=== PATIENT | female | born 1965 | race American Indian/Alaskan Native ===

== ENCOUNTER 2016-06-19 12:08 | Emergency (ER) | payer OTHER ==
[2016-06-19 12:33] VITALS: BP 154/106
[2016-06-19] MEDS ORDERED: ZITHROMAX PO ONE (15:22)
[2016-06-19] MEDS ORDERED: MOTRIN PO ONE (15:22)
[2016-06-19] MEDS ORDERED: ROBITUSSIN DM PO ONE (15:22)
[2016-06-19] MEDS ORDERED: DUONEB 0.5 MG-3 MG/3 ML SOLN IH ONE ×2 (15:23→16:18)
[2016-06-19] MEDS ORDERED: DELTASONE PO ONE (15:23)
[2016-06-19] MEDS ORDERED: PROVENTIL IH ONE (15:38)
--- NOTE | 2016-06-19 15:39 | Emergency Department Report ---
- General Chief Complaint: Upper Respiratory Infection Stated Complaint: WHEEZING/COUGH/BODY ACHE/EAR CLOGGED Time Seen by Provider: 06/19/16 15:22 Source: patient Mode of arrival: Ambulatory Limitations: No Limitations - History of Present Illness Initial Comments: 51-year-old female smoker presents with 2 weeks of worsening cough now productive with fever and chills. Patient actively wheezing on exam, having coughing fits which leave her breathlessness. Denies any substernal chest pain no diaphoresis, subjective fever chills. Denies any nausea or vomiting no recent travel. Complaining of body aches. Onset/Timin -: week(s) Severity: moderate Severity scale (0 -10): 6 Consistency: constant Improves With: OTC cold medicine Worsens With: nothing Context: sick contacts Associated Symptoms: cough - Related Data Home Medications Medication Instructions Recorded Confirmed Last Taken metFORMIN [Glucophage] 500 mg PO BID 05/27/15 05/27/15 Unknown Previous Rx's Medication Instructions Recorded Last Taken Type Insulin NPH/Regular [NovoLIN 70/30] 15 unit SUB-Q BIDDIAB #30 units 05/29/15 Unknown Rx Insulin Regular, Human [HumuLIN R] 1,000 unit SQ AC PRN #30 ml 05/29/15 Unknown Rx Lancing Device/Lancets [Onetouch 1 each MC AC #30 each 05/29/15 Unknown Rx Suresoft Lancing Dev] ALBUTEROL Inhaler [Proair] 2 puff IH QID PRN #1 inhalation 06/19/16 Unknown Rx Azithromycin [Zithromax Z-KOURTNEY] 250 mg PO QDAY #4 tablet 06/19/16 Unknown Rx Naproxen [Naprosyn TAB] 500 mg PO BID PRN #20 tablet 06/19/16 Unknown Rx Phenylephrine/Dm/Acetaminop/GG 10 ml PO Q4H PRN #1 bottle 06/19/16 Unknown Rx [Mucinex Fast-Max Sev Cold Liq] predniSONE [Deltasone] 40 mg PO QDAY #10 tablet 06/19/16 Unknown Rx Allergies Allergy/AdvReac Type Severity Reaction Status Date / Time No Known Allergies Allergy Unverified 01/22/15 11:52 ED Review of Systems ROS: Stated complaint: WHEEZING/COUGH/BODY ACHE/EAR CLOGGED Other details as noted in HPI Constitutional: denies: chills, fever Eyes: denies: eye pain, eye discharge, vision change ENT: denies: ear pain, throat pain Respiratory: denies: cough, shortness of breath, wheezing Cardiovascular: denies: chest pain, palpitations Endocrine: no symptoms reported Gastrointestinal: denies: abdominal pain, nausea, diarrhea Genitourinary: denies: urgency, dysuria, discharge Musculoskeletal: denies: back pain, joint swelling, arthralgia Skin: denies: rash, lesions Neurological: denies: headache, weakness, paresthesias Psychiatric: denies: anxiety, depression Hematological/Lymphatic: denies: easy bleeding, easy bruising ED Past Medical Hx - Past Medical History Previous Medical History?: Yes Hx Congestive Heart Failure: No Hx Diabetes: Yes Hx Asthma: No Hx COPD: No Hx HIV: No - Surgical History Past Surgical History?: Yes Additional Surgical History: TUBAL LIGATION 1991. TONSILLECTOMY - Social History Smoking Status: Current Every Day Smoker Substance Use Type: Alcohol - Medications Home Medications: Home Medications Medication Instructions Recorded Confirmed Last Taken Type metFORMIN [Glucophage] 500 mg PO BID 05/27/15 05/27/15 Unknown History Insulin NPH/Regular [NovoLIN 70/30] 15 unit SUB-Q BIDDIAB #30 units 05/29/15 Unknown Rx Insulin Regular, Human [HumuLIN R] 1,000 unit SQ AC PRN #30 ml 05/29/15 Unknown Rx Lancing Device/Lancets [Onetouch 1 each MC AC #30 each 05/29/15 Unknown Rx Suresoft Lancing Dev] ALBUTEROL Inhaler [Proair] 2 puff IH QID PRN #1 inhalation 06/19/16 Unknown Rx Azithromycin [Zithromax Z-KOURTNEY] 250 mg PO QDAY #4 tablet 06/19/16 Unknown Rx Naproxen [Naprosyn TAB] 500 mg PO BID PRN #20 tablet 06/19/16 Unknown Rx Phenylephrine/Dm/Acetaminop/GG 10 ml PO Q4H PRN #1 bottle 06/19/16 Unknown Rx [Mucinex Fast-Max Sev Cold Liq] predniSONE [Deltasone] 40 mg PO QDAY #10 tablet 06/19/16 Unknown Rx ED Physical Exam - General Limitations: No Limitations General appearance: alert, in no apparent distress - Head Head exam: Present: atraumatic, normocephalic - Eye Eye exam: Present: normal appearance, PERRL, EOMI - ENT ENT exam: Present: mucous membranes moist - Neck Neck exam: Present: normal inspection - Respiratory Respiratory exam: Present: normal lung sounds bilaterally, rhonchi. Absent: respiratory distress - Cardiovascular Cardiovascular Exam: Present: regular rate, normal rhythm. Absent: systolic murmur, diastolic murmur, rubs, gallop - GI/Abdominal GI/Abdominal exam: Present: soft, normal bowel sounds - Extremities Exam Extremities exam: Present: normal inspection, full ROM, tenderness - Back Exam Back exam: Present: normal inspection - Neurological Exam Neurological exam: Present: alert, oriented X3, CN II-XII intact, normal gait - Psychiatric Psychiatric exam: Present: normal affect, normal mood - Skin Skin exam: Present: warm, dry, intact, normal color. Absent: rash ED Course Vital Signs 06/19/16 06/19/16 06/19/16 12:29 15:10 15:36 Temperature 98.4 F Pulse Rate 90 Pulse Rate [ 88 89 Posterior Bilateral Throughout] Respiratory 20 Rate Respiratory 22 26 H Rate [Posterior Bilateral Throughout] Blood Pressure 154/106 O2 Sat by Pulse 95 Oximetry 06/19/16 06/19/16 16:22 16:46 Temperature Pulse Rate Pulse Rate [ 88 87 Posterior Bilateral Throughout] Respiratory Rate Respiratory 22 20 Rate [Posterior Bilateral Throughout] Blood Pressure O2 Sat by Pulse Oximetry ED Medical Decision Making - Medical Decision Making A/P: Acute bronchitis 1-chest x-ray within normal limits 2-Mucinex, Z-Kourtney, Proventil inhaler, prednisone 40 mg 5 days 3-follow-up with primary care doctor Critical care attestation.: If time is entered above; I have spent that time in minutes in the direct care of this critically ill patient, excluding procedure time. ED Disposition Clinical Impression: Acute bronchitis Qualifiers: Bronchitis organism: unspecified organism Qualified Code(s): J20.9 - Acute bronchitis, unspecified Disposition: DISCHARGED TO HOME OR SELFCARE Is pt being admited?: No Does the pt Need Aspirin: No Condition: Stable Instructions: Acute Bronchitis (ED) Prescriptions: predniSONE [Deltasone] 40 mg PO QDAY #10 tablet Phenylephrine/Dm/Acetaminop/GG [Mucinex Fast-Max Sev Cold Liq] 10 ml PO Q4H PRN #1 bottle PRN Reason: Cough Naproxen [Naprosyn TAB] 500 mg PO BID PRN #20 tablet PRN Reason: Fever ALBUTEROL Inhaler [Proair] 2 puff IH QID PRN #1 inhalation PRN Reason: Shortness Of Breath Azithromycin [Zithromax Z-KOURTNEY] 250 mg PO QDAY #4 tablet Referrals: PRIMARY CARE, [Primary Care Provider] - 3-5 Days Forms: Work/School Release Form(ED)
--- NOTE | 2016-06-19 17:27 | XRay Report ---
FINAL REPORT PROCEDURE: XR CHEST ROUTINE 2V TECHNIQUE: Two views of the chest are obtained HISTORY: ? PNA rhonchi and wheezign loudly COMPARISON: No prior studies are available for comparison. FINDINGS: The heart is normal in size. There is no focal infiltrate, pneumothorax or pleural effusion. No hyperinflation is seen. IMPRESSION: No abnormalities are seen.
== END 2016-06-19 18:30 | disposition home or self-care (01) ==
LOC: ED 12:08
DX: J20.9 Acute bronchitis, unspecified (principal); E11.9 Type 2 diabetes mellitus without complications; Z79.4 Long term (current) use of insulin; F17.200 Nicotine dependence, unspecified, uncomplicated
CPT/HCPCS: 71020; 94640; 99283; J7512

== ENCOUNTER 2016-08-07 11:05 | Emergency (ER) | payer SELFPAY ==
[2016-08-07 12:36] LABS: Basophils % (Auto) 0.5 % (0.0-1.8); Eosinophils % (Auto) 0.2 % (0.0-4.3); Hemoglobin 13.5 gm/dl (10.1-14.3); Mean Corpuscular HGB Conc 33 % (30-34); Mean Corpuscular Hemoglobin 28 pg (28-32); Mean Corpuscular Volume 86 fl (79-97); Platelet Count 298 K/mm3 (140-440); Red Blood Count 4.76 M/mm3 (3.65-5.03); Red Cell Distribution Width 13.8 % (13.2-15.2); White Blood Count 15.4 K/mm3 (4.5-11.0)
[2016-08-07 12:51] LABS: Alanine Aminotransferase 26 units/L (7-56); Albumin/Globulin Ratio 1.4 %; Alkaline Phosphatase 75 units/L (35-129); Anion Gap 17 mmol/L; Bilirubin,Total 0.2 mg/dL (0.1-1.2); Blood Urea Nitrogen 9 mg/dL (7-17); Calcium 9.3 mg/dL (8.4-10.2); Carbon Dioxide 26 mmol/L (22-30); Glucose 192 mg/dL (65-100); Lipase 21 units/L (13-60); Potassium 4.6 mmol/L (3.6-5.0); Sodium 139 mmol/L (137-145); Total Protein 6.9 g/dL (6.3-8.2)
[2016-08-07 14:54] LABS: Bacteria,Urine 1+ /HPF (Negative); Bilirubin,Urine NEG (Negative); Blood,Urine NEG (Negative); Ketones,Urine NEG (Negative); Leukocyte Esterase,Urine MOD (Negative); Mucus,Urine 1+ /HPF; Nitrite,Urine NEG (Negative); Protein,Urine <15 mg/dL mg/dL (Negative); Urobilinogen,Urine < 2.0 mg/dL (<2.0)
[2016-08-07] MEDS ORDERED: TYLENOL ONE (15:32)
[2016-08-07 15:37] VITALS: BP 145/89
[2016-08-07] MEDS ORDERED: TYLENOL PO ONE (15:37)
--- NOTE | 2016-08-08 07:11 | ED Elopement Review ---
ED Pt Elopement review - Results review Lab results: Laboratory Tests 08/07/16 08/07/16 08/07/16 12:25 12:25 13:36 WBC 15.4 H RBC 4.76 Hgb 13.5 Hct 41.0 MCV 86 MCH 28 MCHC 33 RDW 13.8 Plt Count 298 Lymph % (Auto) 13.4 [place] % (Auto) 3.9 Eos % (Auto) 0.2 Baso % (Auto) 0.5 Lymph # 2.1 [place] # 0.6 Eos # 0.0 Baso # 0.1 Seg Neutrophils % 82.0 H Seg Neutrophils # 12.6 H Sodium 139 Potassium 4.6 Chloride 101.0 Carbon Dioxide 26 Anion Gap 17 BUN 9 Creatinine 0.6 L Estimated GFR > 60 BUN/Creatinine Ratio 15.00 Glucose 192 H Calcium 9.3 Total Bilirubin 0.2 AST 19 ALT 26 Alkaline Phosphatase 75 Total Protein 6.9 Albumin 4.0 Albumin/Globulin Ratio 1.4 Lipase 21 Urine Color Yellow Urine Turbidity Cloudy Urine pH 6.0 Ur Specific [place] 1.016 Urine Protein <15 mg/dl Urine Glucose (UA) 50 Urine Ketones Neg Urine Blood Neg Urine Nitrite Neg Urine Bilirubin Neg Urine Urobilinogen < 2.0 Ur Leukocyte Esterase Mod Urine WBC (Auto) 6.0 Urine RBC (Auto) 3.0 U Epithel Cells (Auto) 15.0 H Urine Bacteria (Auto) 1+ Urine Mucus 1+ - Call Back decision Pt Call Back Decision: No action required
== END 2016-08-07 15:43 | disposition left against medical advice (07) ==
LOC: ED 11:05
DX: R10.30 Lower abdominal pain, unspecified (principal); R11.0 Nausea; E11.9 Type 2 diabetes mellitus without complications; F17.200 Nicotine dependence, unspecified, uncomplicated; Z53.21 Procedure and treatment not carried out due to patient leaving prior to being seen by health care provider
CPT/HCPCS: 36415; 80053; 81001; 83690; 85025

== ENCOUNTER 2017-03-03 22:59 | Inpatient (IN) | payer OTHER ==
[2017-03-03] MEDS ORDERED: FIORICET ONE (23:32)
[2017-03-03] MEDS ORDERED: FIORICET PO ONE (23:32)
[2017-03-04] MEDS ORDERED: BENADRYL ONE (05:29)
[2017-03-04] MEDS ORDERED: REGLAN ONE (05:29)
[2017-03-04] MEDS ORDERED: REGLAN IV ONE (05:35)
[2017-03-04] MEDS ORDERED: BENADRYL IV ONE (05:35)
--- NOTE | 2017-03-04 06:27 | Cat Scan Report ---
FINAL REPORT PROCEDURE: CT HEAD/BRAIN WO CON TECHNIQUE: Computerized tomography of the head was performed without contrast material. HISTORY: BROOKS, FACIAL SWELLING AND NUMBING COMPARISON: No prior studies are available for comparison. FINDINGS: Skull and scalp: Normal. Paranasal sinuses: Normal. Ventricles and subarachnoid spaces: Normal. Cerebrum: No evidence of hemorrhage, acute infarction or mass . Cerebellum and brainstem: No evidence of hemorrhage, acute infarction or mass. Vasculature: Normal. Comments: None. IMPRESSION: Normal Examination
[2017-03-04] MEDS ORDERED: CATAPRES PO ONE (06:50)
[2017-03-04] MEDS ORDERED: SUBLIMAZE IV ONE ×2 (06:51→10:09)
[2017-03-04] MEDS ORDERED: ZOFRAN IV ONE (06:51)
--- NOTE | 2017-03-04 06:56 | Emergency Department Report ---
HPI - General Chief Complaint: Neck Pain/Injury Time Seen by Provider: 03/04/17 06:37 - HPI HPI: Room 7 The patient is a 52-year-old female presented with the chief complaint of headache. The patient states 1 week ago she developed pain in the right posterior aspect of her neck. The patient states this pain then spread to the right side of her face and then diffuse head. [id number] medications did not help. Patient denies any preceding trauma or history of fever. Patient denies any preceding URI symptoms. Yesterday the patient states she developed intermittent bilateral hand numbness the right greater than left. The patient states she also developed intermittent right lower extremity numbness. Patient denies weakness, dysarthria or dysphagia Location: [see above] Duration: One week Quality: Pain Severity: Moderate Modifying factors: [see above] Context: [see above] Mode of transportation: unknown ED Past Medical Hx - Past Medical History Hx CVA: Yes (TIA) Hx Diabetes: Yes - Surgical History Additional Surgical History: TUBAL LIGATION 1991. TONSILLECTOMY - Family History Family history: no significant - Social History Smoking Status: Current Every Day Smoker Substance Use Type: None (denies illicit drug use), Alcohol (occasional) - Medications Home Medications: Home Medications Medication Instructions Recorded Confirmed Last Taken Type Insulin NPH/Regular [NovoLIN 70/30] 15 - 40 unit SUB-Q QDAY 03/04/17 03/04/17 Unknown History Insulin Regular, Human [HumuLIN R] 20 unit SQ AC PRN 03/04/17 03/04/17 Unknown History ED Review of Systems ROS: Stated complaint: POSSIBLE STROKE Other details as noted in HPI Comment: All other systems reviewed and negative Constitutional: denies: chills, fever Eyes: denies: eye pain, eye discharge, vision change ENT: denies: ear pain, throat pain Respiratory: denies: cough, shortness of breath, wheezing Cardiovascular: denies: chest pain, palpitations Endocrine: no symptoms reported Gastrointestinal: denies: abdominal pain, nausea, diarrhea Genitourinary: denies: urgency, dysuria, discharge Musculoskeletal: myalgia Skin: denies: rash, lesions Neurological: headache, paresthesias Psychiatric: denies: anxiety, depression Hematological/Lymphatic: denies: easy bleeding, easy bruising Physical Exam - Physical Exam Vital Signs: Vital Signs 09/03/03/17 03/04/17 23:09 23:33 03:56 Temperature 98.9 F 97.7 F Pulse Rate 128 H 98 H Respiratory 18 18 20 Rate Blood Pressure 175/111 168/107 Blood Pressure [Right] O2 Sat by Pulse 99 100 Oximetry 03/04/17 03/04/17 05:02 05:50 Temperature 98.7 F Pulse Rate 82 84 Respiratory 18 20 Rate Blood Pressure Blood Pressure 176/106 183/109 [Right] O2 Sat by Pulse 99 100 Oximetry Physical Exam: GENERAL: The patient is well-developed well-nourished female lying on stretcher appearing to be in moderate discomfort. [] HEENT: Normocephalic. Atraumatic. Extraocular motions are intact. Patient has moist mucous membranes. NECK: Supple. Trachea midline CHEST/LUNGS: Clear to auscultation. There is no respiratory distress noted. HEART/CARDIOVASCULAR: Regular. There is no tachycardia. There is no gallop rub or murmur. ABDOMEN: Abdomen is soft, nontender. Patient has normal bowel sounds. There is no abdominal distention. SKIN: There is no rash. There is no edema. There is no diaphoresis. NEURO: The patient is awake, alert, and oriented. The patient is cooperative. The patient has no focal neurologic deficits. The patient has normal speech. Cranial nerves II through XII grossly intact, no drift MUSCULOSKELETAL: There is no evidence of acute injury. ED Course Vital Signs 03/03/17 03/03/17 03/04/17 23:09 23:33 03:56 Temperature 98.9 F 97.7 F Pulse Rate 128 H 98 H Respiratory 18 18 20 Rate Blood Pressure 175/111 168/107 Blood Pressure [Right] O2 Sat by Pulse 99 100 Oximetry 03/04/17 03/04/17 05:02 05:50 Temperature 98.7 F Pulse Rate 82 84 Respiratory 18 20 Rate Blood Pressure Blood Pressure 176/106 183/109 [Right] O2 Sat by Pulse 99 100 Oximetry ED Medical Decision Making - Lab Data Result diagrams: 03/04/17 06:59 03/04/17 06:59 Laboratory Tests 03/03/17 03/04/17 03/04/17 23:16 03:57 06:59 WBC 13.1 H RBC 5.07 H Hgb 14.3 Hct 43.4 H MCV 85 MCH 28 MCHC 33 RDW 14.4 Plt Count 263 Lymph % (Auto) 28.2 [place] % (Auto) 6.0 Eos % (Auto) 2.2 Baso % (Auto) 0.7 Lymph # 3.7 [place] # 0.8 Eos # 0.3 Baso # 0.1 Seg Neutrophils % 62.9 Seg Neutrophils # 8.3 H PT INR APTT Sodium Potassium Chloride Carbon Dioxide Anion Gap BUN Creatinine Estimated GFR BUN/Creatinine Ratio Glucose POC Glucose 164 H 168 H Calcium 03/04/17 03/04/17 03/04/17 06:59 06:59 09:33 WBC RBC Hgb Hct MCV MCH MCHC RDW Plt Count Lymph % (Auto) [place] % (Auto) Eos % (Auto) Baso % (Auto) Lymph # [place] # Eos # Baso # Seg Neutrophils % Seg Neutrophils # PT 14.1 INR 1.10 APTT 36.2 Sodium 140 Potassium 3.9 Chloride 100.3 Carbon Dioxide 27 Anion Gap 17 BUN 13 Creatinine 0.6 L Estimated GFR > 60 BUN/Creatinine Ratio 21.66 Glucose 179 H POC Glucose 189 H Calcium 9.3 - EKG Data -: EKG Interpreted by Ne EKG shows normal: sinus rhythm Rate: normal - EKG Data When compared to previous EKG there are: previous EKG unavailable Interpretation: other (no ischemic changes seen) - Radiology Data Radiology results: report reviewed (CT head, CT angiogram brain, CT angiogram neck), image reviewed (CT head, CT angiogram brain, CT angiogram neck) CT head (read by radiologist)-normal examination CT angiogram neck/CT angiogram head (read by radiologist)-normal CTA head and neck with few incidental findings. - Differential Diagnosis TIA, CVA, ICH, intracranial mass, cerebral aneurysm Critical care attestation.: If time is entered above; I have spent that time in minutes in the direct care of this critically ill patient, excluding procedure time. ED Disposition Clinical Impression: TIA (transient ischemic attack), Headache, Right leg numbness, Hypertension Disposition: - OP ADMIT IP TO THIS HOSP Is pt being admited?: Yes Does the pt Need Aspirin: Yes Condition: Fair Instructions: Hypertension (ED) Referrals: PRIMARY CARE, [Primary Care Provider] - 3-5 Days Time of Disposition: 09:56 (hospitalist paged)
[2017-03-04 07:27] LABS: Basophils % (Auto) 0.7 % (0.0-1.8); Eosinophils % (Auto) 2.2 % (0.0-4.3); Hematocrit 43.4 % (30.3-42.9); Hemoglobin 14.3 gm/dl (10.1-14.3); Mean Corpuscular HGB Conc 33 % (30-34); Mean Corpuscular Hemoglobin 28 pg (28-32); Mean Corpuscular Volume 85 fl (79-97); Platelet Count 263 K/mm3 (140-440); Red Blood Count 5.07 M/mm3 (3.65-5.03); Red Cell Distribution Width 14.4 % (13.2-15.2); White Blood Count 13.1 K/mm3 (4.5-11.0)
[2017-03-04] MEDS ORDERED: NACL ONE (07:28)
[2017-03-04 07:34] LABS: Anion Gap 17 mmol/L; BUN/Creatinine Ratio 21.66; Blood Urea Nitrogen 13 mg/dL (7-17); Calcium 9.3 mg/dL (8.4-10.2); Carbon Dioxide 27 mmol/L (22-30); Chloride 100.3 mmol/L (98-107); Glucose 179 mg/dL (65-100); Potassium 3.9 mmol/L (3.6-5.0); Sodium 140 mmol/L (137-145)
[2017-03-04 07:39] LABS: INR 1.1 (0.87-1.13)
[2017-03-04 07:40] LABS: Partial Thromboplastin Time 36.2 Sec. (24.2-36.6)
--- NOTE | 2017-03-04 09:49 | Cat Scan Report ---
CTA HEAD CTA NECK INDICATION: Headache, right-sided numbness. COMPARISON: None similar. FINDINGS: CTA head and neck performed utilizing IV contrast. Axial, sagittal, coronal and MIP reconstructions obtained. CTA HEAD: Patent [place] without evidence of occlusion, significant stenosis or vascular malformation. Patent vertebrobasilar system as well. CTA NECK: Patent aortic arch and major arising branch vessels, including bilateral carotids and codominant vertebral arteries. Mild vertebral artery tortuosity noted. Medial deviation of the left mid ICA also noted in the pharynx, axial image 124, series 2. Mild atherosclerotic calcifications as at the aortic arch and along right proximal ICA. Some iatrogenic venous air. Unremarkable thyroid. Minimal biapical scarring or atelectasis posteriorly and minimal emphysematous bullae. Patent airway. Few radiopaque dental fillings. CONCLUSION: Normal CTA head and neck with few incidental findings, as described. Please correlate. Thank you for the opportunity to participate in this patient's care.
--- NOTE | 2017-03-04 09:49 | Cat Scan Report ---
CTA HEAD CTA NECK INDICATION: Headache, right-sided numbness. COMPARISON: None similar. FINDINGS: CTA head and neck performed utilizing IV contrast. Axial, sagittal, coronal and MIP reconstructions obtained. CTA HEAD: Patent [place] without evidence of occlusion, significant stenosis or vascular malformation. Patent vertebrobasilar system as well. CTA NECK: Patent aortic arch and major arising branch vessels, including bilateral carotids and codominant vertebral arteries. Mild vertebral artery tortuosity noted. Medial deviation of the left mid ICA also noted in the pharynx, axial image 124, series 2. Mild atherosclerotic calcifications as at the aortic arch and along right proximal ICA. Some iatrogenic venous air. Unremarkable thyroid. Minimal biapical scarring or atelectasis posteriorly and minimal emphysematous bullae. Patent airway. Few radiopaque dental fillings. CONCLUSION: Normal CTA head and neck with few incidental findings, as described. Please correlate. Thank you for the opportunity to participate in this patient's care.
[2017-03-04] MEDS ORDERED: ASPIRIN PO ONE (09:56)
--- NOTE | 2017-03-04 11:23 | History and Physical Report ---
History of Present Illness Date of examination: 03/04/17 Date of admission: 03/04/17 10:17 Chief complaint: Neck pain and headache History of present illness: The patient is a 52-year-old female presented with the chief complaint of headache. The patient states 1 week ago she developed pain in the right posterior aspect of her neck. The patient states this pain then spread to the right side of her face and then diffuse head. [id number] medications did not help. Patient denies any preceding trauma or history of fever. Patient denies any preceding URI symptoms. Yesterday the patient states she developed intermittent bilateral hand numbness the right greater than left. The patient states she also developed intermittent right lower extremity numbness. Patient denies weakness, dysarthria or dysphagia Past History Past Medical History: diabetes Past Surgical History: Other (tubal ligation) Social history: smoking (a quarter of a pack a day), alcohol abuse ([place] or alcohol use), full code Family history: hypertension Review of System: Constitutional: no fever, no chills, no weight loss Ears, eyes, nose, mouth and throat: no nasal congestion, no nasal discharge, no sinus pressure, no vision change, no red eye. Neck: + neck pain and restricted movement. Cardiovascular: No chest pain, no orthopnea, no palpitations, no leg swelling Respiratory: No shortness of breath, no cough, no congestion, no wheezing Gastrointestinal: no abdominal pain, no nausea, no vomiting Genitourinary : no dysuria, no hematuria Musculoskeletal: no joint swelling or muscle ache Integumentary: no rash, no pruritis Neurological: no parathesias, + RUE numbness, no tingling, + headache Endocrine: no cold or heat intolerance, no polyuria or polydipsia Hematologic/Lymphatic: no easy bruising, no easy bleeding, no gland swelling Allergic/Immunologic: no urticaria, no angioedema. Medications and Allergies Allergies Allergy/AdvReac Type Severity Reaction Status Date / Time No Known Allergies Allergy Unverified 01/22/15 11:52 Home Medications Medication Instructions Recorded Confirmed Last Taken Type Insulin NPH/Regular [NovoLIN 70/30] 15 - 40 unit SUB-Q QDAY 03/04/17 03/04/17 Unknown History Insulin Regular, Human [HumuLIN R] 20 unit SQ AC PRN 03/04/17 03/04/17 Unknown History Active Meds: Active Medications Insulin Human Regular (Novolin R) 0 units SUB-Q ACHS CHRIS PRN Reason: Protocol Exam - Physical Exam Narrative exam: GENERAL: This is well-developed well-nourished lying on bed appeared to be in no discomfort. HEENT: Normocephalic. Atraumatic. Extraocular motions are intact. No conjunctival congestion or icterus. Patient has moist mucous membranes. External auditory canal and nares patent bilaterally. NECK: Supple. Trachea midline. No JVD, thyromagaly or lymphadenopathy. CHEST/LUNGS: Clear to auscultated bilaterally. There is no respiratory distress noted, breathing nonlabored. No wheezes crackles or rhonchi. HEART/CARDIOVASCULAR: Regular in rate and rhythm. PMI at the apex. There is no gallop rub or murmur. ABDOMEN: Abdomen is soft, nontender. Patient has normal bowel sounds. There is no abdominal distention. No organomagaly or rigidity. SKIN: There is no rash, no erythrema. There is no diaphoresis. Warm and dry. NEUROLOGY: The patient is awake, alert, and oriented. The patient is cooperative. The patient has normal speech. No focal motor deficit. MUSCULOSKELETAL: No joint effusion or tenderness. Muscle strength equal bilaterally. No muscle wasting. EXTRIMITY: No edema, cyanosis or clubbing. PSYCH: No depression or anxiety noted. Cooperative. - Constitutional Vitals: Temp Pulse Resp BP Pulse Ox 97.7 F 80 16 127/88 95 03/04/17 07:25 03/04/17 08:22 03/04/17 08:22 03/04/17 08:22 03/04/17 08:22 Results - Labs CBC & Chem 7: 03/04/17 06:59 03/04/17 06:59 - Imaging and Cardiology CT Scan - head: report reviewed Assessment and Plan Headache with neck pain Right UE numbness, neuropathy Obesity, due to high calorie tobacco abuse DM type 2, on insulin Leukocytosis, reactive
[2017-03-04] MEDS ORDERED: FIORICET PO PRN (15:33)
--- NOTE | 2017-03-04 18:27 | Magnetic Resonance Report ---
FINAL REPORT EXAM: MR BRAIN WO CON HISTORY: possible cva TECHNIQUE: MRI brain without contrast PRIORS: None. FINDINGS: There is normal signal throughout the brain parenchyma. No evidence for brain edema pattern or mass effect. Ventricles and sulci are within normal limits. No evidence for acute intra-axial or extra-axial hemorrhage. No evidence for acute restriction on diffusion-weighted study. Brainstem and posterior fossa structures are unremarkable. IMPRESSION: Negative. No focal abnormality identified
[2017-03-04] MEDS: PERCOCET 5/325 PO PRN (20:14)
[2017-03-04] MEDS ORDERED: LOVENOX SUB-Q SCH (22:00)
[2017-03-04] MEDS: PEPCID PO SCH (22:06)
[2017-03-05] MEDS: PERCOCET 5/325 PO PRN ×2 (04:20→18:45)
[2017-03-05] MEDS: PEPCID PO SCH (09:17)
[2017-03-05] MEDS ORDERED: HALFPRIN EC PO SCH (10:00)
[2017-03-05] MEDS ORDERED: NACL ONE (13:50)
[2017-03-05] MEDS ORDERED: NEURONTIN PO SCH (14:00)
--- NOTE | 2017-03-05 15:37 | Cat Scan Report ---
FINAL REPORT EXAM: CT NECK WO/W CON HISTORY: neck pain TECHNIQUE: CT of the neck with IV contrast. Coronal and sagittal reconstructed imaging provided. PRIORS: None currently available. FINDINGS: Trachea is unremarkable. True and false vocal cords are unremarkable. Larynx is unremarkable. Epiglottis is unremarkable. Pharynx is symmetrical. No tonsillar enlargement noted. Oropharynx and nasopharynx are unremarkable. No airway compromise noted. No abnormal enhancing lesions noted. Floor of the mouth is unremarkable. Vascular structures are patent. No aneurysm. No dissection. Thyroid gland is mildly enlarged. No distinct lesions. Submandibular glands are unremarkable. Bilateral parotid glands demonstrate calcifications which may represent stones. Intra parotid lymph nodes noted. No distinct mass is noted. No inflammatory changes identified. No parotid duct stones identified. Prominent submandibular lymph nodes particularly in the left identified. Prominent anterior and posterior cervical triangle lymph nodes noted in the mid upper cervical spine identified. Most of the lymph nodes remain subcentimeter in short axis diameter. Findings may be reactive or related to inflammatory process. Some significant adenopathy related to lymphoma or leukemia is less likely but not entirely excluded. No abnormal enhancing lesions identified. No mass is evident. Partially imaged paranasal sinuses are unremarkable. Partially imaged temporal bones are unremarkable. Series 4:44 demonstrates corticated calcifications which may represent bone fragments or dystrophic calcifications the left interval at the C1-C2 articulation. Partial images of the lungs are unremarkable. IMPRESSION: Mildly prominent subcentimeter bilateral submandibular and upper cervical lymph nodes. Findings may be reactive or inflammatory. Adenopathy related to lymphoma/leukemia is less likely but not entirely excluded. Suspect loose bodies related to dystrophic calcifications left interval at the C1-C2 articulation. This may be causing pain on rotation.
--- NOTE | 2017-03-05 15:42 | Discharge Summary ---
Providers - Providers Date of Admission: 03/04/17 10:17 Date of discharge: 03/05/17 Attending physician: RANDI SHIRLEY Primary care physician: CAROL POWER MD Hospitalization Condition: Fair Hospital course: Discharge Diagnosis: Headache with neck pain - likely musculoskeletal in Right UE numbness, neuropathy - stroke work up was negative Obesity, due to high calorie tobacco abuse, counselled for cessation DM type 2, on insulin Leukocytosis, reactive Disposition: DC-01 TO HOME OR SELFCARE Time spent for discharge: 32 minutes Core Measure Documentation - Palliative Care Palliative Care/ Comfort Measures: Not Applicable - Core Measures Any of the following diagnoses?: none Exam - Physical Exam Narrative exam: GENERAL: This is well-developed obese AAF lying on bed appeared to be in no discomfort. HEENT: Normocephalic. Atraumatic. Extraocular motions are intact. No conjunctival congestion or icterus. Patient has moist mucous membranes. External auditory canal and nares patent bilaterally. NECK: Trachea midline. No JVD, thyromagaly or lymphadenopathy. pain with neck movement, no tenderness CHEST/LUNGS: Clear to auscultated bilaterally. There is no respiratory distress noted, breathing nonlabored. No wheezes crackles or rhonchi. HEART/CARDIOVASCULAR: Regular in rate and rhythm. PMI at the apex. There is no gallop rub or murmur. ABDOMEN: Abdomen is soft, nontender. Patient has normal bowel sounds. There is no abdominal distention. No organomagaly or rigidity. SKIN: There is no rash, no erythrema. There is no diaphoresis. Warm and dry. NEUROLOGY: The patient is awake, alert, and oriented. The patient is cooperative. The patient has normal speech. No focal motor deficit. MUSCULOSKELETAL: Muscle strength equal bilaterally. No muscle wasting. EXTRIMITY: No edema, cyanosis or clubbing. PSYCH: No depression or anxiety noted. Cooperative. - Constitutional Vitals: Temp Pulse Resp BP Pulse Ox 97.9 F 90 20 135/77 100 03/05/17 07:21 03/05/17 10:00 03/05/17 07:21 03/05/17 07:21 03/05/17 04:12 Plan Activity: advance as tolerated Weight Bearing Status: Non-Weight Bearing Diet: diabetic Additional Instructions: f/u with Dr. Tovar as outpt Follow up with: PRIMARY CAREMD [Primary Care Provider] - 3-5 Days Prescriptions: Cyclobenzaprine [Flexeril] 10 mg PO TID PRN #20 tablet PRN Reason: Muscle Spasm oxyCODONE /ACETAMINOPHEN [Percocet 5/325 mg] 2 tab PO Q6H PRN #20 tablet PRN Reason: Pain, Moderate (4-6)
[2017-03-05 17:06] VITALS: BP 154/90
[2017-03-05 17:23] LABS: Basophils % (Auto) 0.8 % (0.0-1.8); Hematocrit 38.9 % (30.3-42.9); Hemoglobin 13.3 gm/dl (10.1-14.3); Mean Corpuscular HGB Conc 34 % (30-34); Mean Corpuscular Hemoglobin 29 pg (28-32); Mean Corpuscular Volume 85 fl (79-97); Platelet Count 258 K/mm3 (140-440); Red Blood Count 4.58 M/mm3 (3.65-5.03); Red Cell Distribution Width 14.7 % (13.2-15.2)
== END 2017-03-05 19:25 | disposition home or self-care (01) | DRG 556 ==
LOC: ED 22:59 → 4A 03-04 10:17 → 3A 03-04 12:30
PROVIDERS: ADMIT Internal Medicine; ATTEND Internal Medicine
DX: M79.1 Myalgia (principal); R51 Headache; R20.0 Anesthesia of skin; F17.200 Nicotine dependence, unspecified, uncomplicated; I10 Essential (primary) hypertension; F10.10 Alcohol abuse, uncomplicated; E66.9 Obesity, unspecified; D72.829 Elevated white blood cell count, unspecified; E11.40 Type 2 diabetes mellitus with diabetic neuropathy, unspecified; M54.2 Cervicalgia; Z86.73 Personal history of transient ischemic attack (TIA), and cerebral infarction without residual deficits; Z98.51 Tubal ligation status; Z79.4 Long term (current) use of insulin; Z82.49 Family history of ischemic heart disease and other diseases of the circulatory system; Z68.32 Body mass index [BMI] 32.0-32.9, adult
CPT/HCPCS: 36415; 70450; 70492; 70496; 70498; 70551; 80048; 82607; 82962; 83036; 85025; 85610; 85730; 93005; 93010; 96374; 96375; 96376; 99406; A9270-GY; J1200; J1650; J1815; J2405; J2765; J3010; Q9967

== ENCOUNTER 2017-04-05 22:07 | Emergency (ER) | payer SELFPAY ==
[2017-04-05] MEDS ORDERED: MOTRIN PO ONE (22:38)
[2017-04-05] MEDS ORDERED: MOTRIN ONE (22:38)
[2017-04-05 23:36] LABS: Basophils % (Auto) 1.5 % (0.0-1.8); Eosinophils % (Auto) 1.5 % (0.0-4.3); Hematocrit 44.1 % (30.3-42.9); Hemoglobin 14.3 gm/dl (10.1-14.3); Mean Corpuscular HGB Conc 33 % (30-34); Mean Corpuscular Hemoglobin 28 pg (28-32); Mean Corpuscular Volume 86 fl (79-97); Platelet Count 290 K/mm3 (140-440); Red Blood Count 5.11 M/mm3 (3.65-5.03); Red Cell Distribution Width 14.9 % (13.2-15.2)
[2017-04-05 23:51] LABS: Anion Gap 20 mmol/L; BUN/Creatinine Ratio 25; Blood Urea Nitrogen 15 mg/dL (7-17); Calcium 9.8 mg/dL (8.4-10.2); Carbon Dioxide 26 mmol/L (22-30); Chloride 95.6 mmol/L (98-107); Glucose 263 mg/dL (65-100); Potassium 4.3 mmol/L (3.6-5.0); Sodium 137 mmol/L (137-145)
[2017-04-06] MEDS ORDERED: TORADOL IV ONE (06:20)
--- NOTE | 2017-04-06 06:24 | Emergency Department Report ---
ED Chest Pain HPI - General Chief Complaint: Chest Pain Stated Complaint: CHEST PAIN Time Seen by Provider: 04/06/17 06:03 Source: patient Mode of arrival: Ambulatory Limitations: No Limitations - History of Present Illness Initial Comments: 52-year-old female who presents complaining of chest pain. Patient states that she has had chest pain for 3 days. She describes it as a sharp pain is worse with deep inspiration. She does have some shortness of breath associated with it. She's never had this type pain before she does state that she's had an [facility] in the past. She denies fevers chills nausea vomiting. She denies any cough. She does state the pain is worse when sitting up. No history of PE or DVT. MD Complaint: chest pain -: days(s) (3) Onset: during rest Pain Location: substernal Pain Radiation: none Severity: moderate Severity scale (0 -10): 10 Quality: sharp Consistency: constant Improves With: other (NSAIDs) Worsens With: inspiration, movement re: dyspnea. denies: nausea, vomting, diaphoresis Other Symptoms: denies: cough, fever, syncope - Related Data Home Medications Medication Instructions Recorded Confirmed Last Taken Insulin NPH/Regular [NovoLIN 70/30] 15 - 40 unit SUB-Q QDAY 03/04/17 03/04/17 Unknown Insulin Regular, Human [HumuLIN R] 20 unit SQ AC PRN 03/04/17 03/04/17 Unknown Previous Rx's Medication Instructions Recorded Last Taken Type Cyclobenzaprine [Flexeril] 10 mg PO TID PRN #20 tablet 03/05/17 Unknown Rx oxyCODONE /ACETAMINOPHEN [Percocet 2 tab PO Q6H PRN #20 tablet 03/05/17 Unknown Rx 5/325 mg] Naproxen [Naprosyn] 500 mg PO BID #60 tablet 04/06/17 Unknown Rx Allergies Allergy/AdvReac Type Severity Reaction Status Date / Time No Known Allergies Allergy Unverified 01/22/15 11:52 Heart Score - HEART Score History: Slightly suspicious EKG: Normal Age: 45-65 Risk factors: 1-2 risk factors Troponin: < normal limit HEART Score: 2 - Critical Actions Critical Actions: 0-3 pts:0.9-1.7%risk of adverse cardiac event.Candidate for discharge ED Review of Systems ROS: Stated complaint: CHEST PAIN Other details as noted in HPI Comment: All other systems reviewed and negative Constitutional: denies: chills, fever Respiratory: shortness of breath. denies: cough, wheezing Cardiovascular: chest pain. denies: palpitations Endocrine: no symptoms reported Gastrointestinal: denies: abdominal pain, nausea, diarrhea Genitourinary: denies: urgency, dysuria, discharge Musculoskeletal: denies: back pain, joint swelling, arthralgia Skin: denies: rash, lesions Neurological: denies: headache, weakness, paresthesias Psychiatric: denies: anxiety, depression Hematological/Lymphatic: denies: easy bleeding, easy bruising ED Past Medical Hx - Past Medical History Hx CVA: Yes (TIA) Hx Congestive Heart Failure: No Hx Diabetes: Yes Hx Asthma: No Hx COPD: No Hx HIV: No - Surgical History Additional Surgical History: TUBAL LIGATION 1991. TONSILLECTOMY - Family History Family history: no significant - Social History Smoking Status: Current Every Day Smoker Substance Use Type: None - Medications Home Medications: Home Medications Medication Instructions Recorded Confirmed Last Taken Type Insulin NPH/Regular [NovoLIN 70/30] 15 - 40 unit SUB-Q QDAY 03/04/17 03/04/17 Unknown History Insulin Regular, Human [HumuLIN R] 20 unit SQ AC PRN 03/04/17 03/04/17 Unknown History Cyclobenzaprine [Flexeril] 10 mg PO TID PRN #20 tablet 03/05/17 Unknown Rx oxyCODONE /ACETAMINOPHEN [Percocet 2 tab PO Q6H PRN #20 tablet 03/05/17 Unknown Rx 5/325 mg] Naproxen [Naprosyn] 500 mg PO BID #60 tablet 04/06/17 Unknown Rx ED Physical Exam - General Limitations: No Limitations General appearance: alert, in no apparent distress - Head Head exam: Present: atraumatic, normocephalic - Eye Eye exam: Present: normal appearance. Absent: scleral icterus, conjunctival injection - ENT ENT exam: Present: mucous membranes moist - Neck Neck exam: Present: normal inspection. Absent: lymphadenopathy - Respiratory Respiratory exam: Present: normal lung sounds bilaterally. Absent: respiratory distress, wheezes - Cardiovascular Cardiovascular Exam: Present: regular rate, normal rhythm, normal heart sounds. Absent: systolic murmur, diastolic murmur, rubs, gallop - GI/Abdominal GI/Abdominal exam: Present: soft, normal bowel sounds - Extremities Exam Extremities exam: Present: normal inspection - Back Exam Back exam: Present: normal inspection - Neurological Exam Neurological exam: Present: alert, oriented X3 - Psychiatric Psychiatric exam: Present: normal affect, normal mood - Skin Skin exam: Present: warm, dry, intact, normal color. Absent: rash ED Course Vital Signs 04/05/17 04/05/17 04/06/17 22:28 22:30 04:34 Temperature 97.9 F Pulse Rate 84 78 Respiratory 18 18 20 Rate Blood Pressure 152/101 127/79 O2 Sat by Pulse 100 100 Oximetry 04/06/17 04/06/17 04/06/17 04:45 04:49 05:00 Temperature Pulse Rate 69 78 76 Respiratory 17 13 Rate Blood Pressure 153/92 153/92 O2 Sat by Pulse 98 98 Oximetry 04/06/17 04/06/17 04/06/17 05:15 05:30 05:41 Temperature Pulse Rate 74 78 Respiratory 21 16 18 Rate Blood Pressure 146/97 158/94 O2 Sat by Pulse 100 99 99 Oximetry ED Medical Decision Making - Lab Data Result diagrams: 04/05/17 22:39 04/05/17 22:39 Laboratory Results - last 24 hr 04/05/17 04/05/17 04/06/17 22:39 22:39 01:17 WBC 13.0 H RBC 5.11 H Hgb 14.3 Hct 44.1 H MCV 86 MCH 28 MCHC 33 RDW 14.9 Plt Count 290 Lymph % (Auto) 31.0 Taney % (Auto) 5.4 Eos % (Auto) 1.5 Baso % (Auto) 1.5 Lymph # 4.0 Taney # 0.7 Eos # 0.2 Baso # 0.2 H Seg Neutrophils % 60.6 Seg Neutrophils # 7.9 H Sodium 137 Potassium 4.3 Chloride 95.6 L Carbon Dioxide 26 Anion Gap 20 BUN 15 Creatinine 0.6 L Estimated GFR > 60 BUN/Creatinine Ratio 25 Glucose 263 H Calcium 9.8 Troponin T < 0.010 < 0.010 04/06/17 04:58 WBC RBC Hgb Hct MCV MCH MCHC RDW Plt Count Lymph % (Auto) Taney % (Auto) Eos % (Auto) Baso % (Auto) Lymph # Taney # Eos # Baso # Seg Neutrophils % Seg Neutrophils # Sodium Potassium Chloride Carbon Dioxide Anion Gap BUN Creatinine Estimated GFR BUN/Creatinine Ratio Glucose Calcium Troponin T < 0.010 - EKG Data -: EKG Interpreted by Me - EKG Data 04/06/17 06:23 Sinus 96 normal axis normal intervals and no ST-T wave changes - Medical Decision Making 52-year-old female who presents emergency Department with complaint of chest pain. Patient states pain is sharp and worse with movement. Her EKG labs and chest x-ray are all unremarkable. Given her story I am slightly worried about pulmonary embolism. Plan CAT scan with IV contrast. Treatment with NSAIDs in the meantime. I do not believe this is ACS. She has a normal CT PE protocol. This point I' ll discharge her with NSAIDs and have her follow-up with her primary doctor. Portions of this chart were dictated with dictation software. There may be dictation errors contained within this note. Critical care attestation.: If time is entered above; I have spent that time in minutes in the direct care of this critically ill patient, excluding procedure time. ED Disposition Clinical Impression: Chest pain Disposition: DC-01 TO HOME OR SELFCARE Is pt being admited?: No Condition: Stable Instructions: Chest Pain (ED) Prescriptions: Naproxen [Naprosyn] 500 mg PO BID #60 tablet Referrals: PRIMARY CARE, [Primary Care Provider] - 3-5 Days
[2017-04-06] MEDS ORDERED: NACL ONE (06:55)
--- NOTE | 2017-04-06 07:10 | XRay Report ---
Chest 2 views: Compared to 06/19/16. History: Shortness of breath chest pain. Findings: Normal cardiomediastinal silhouette. Trachea is midline. No consolidation, pneumothorax or pleural effusion. Impression: No acute cardiopulmonary findings.
--- NOTE | 2017-04-06 07:39 | Cat Scan Report ---
CT of the chest: Pleuritic chest pain; SOB. Following IV administration of contrast there is good opacification of the pulmonary arteries, veins, and cardiac chambers with no filling defects identified. The thoracic aorta is also well opacified and is normal in size and contour. There is no hilar or mediastinal adenopathy. Central airways are patent. The lungs are clear of any nodule, infiltrate, or pleural changes. The chest wall is unremarkable. Several sections into the upper abdomen are unremarkable. Impression: No pathology identified.
[2017-04-06 08:09] VITALS: BP 176/78
[2017-04-06] MEDS ORDERED: ULTRAM PO ONE (08:41)
== END 2017-04-06 08:50 | disposition home or self-care (01) ==
LOC: ED 22:07
DX: R07.89 Other chest pain (principal); E11.9 Type 2 diabetes mellitus without complications; F17.210 Nicotine dependence, cigarettes, uncomplicated; Z86.73 Personal history of transient ischemic attack (TIA), and cerebral infarction without residual deficits; Z79.4 Long term (current) use of insulin
CPT/HCPCS: 36415; 71020; 71275; 80048; 82962; 84484; 85025; 93005; 93010; 96374; 99285; J1885; Q9967